=== PATIENT | male | born 1975 | race Caucasian/White ===

== ENCOUNTER 2023-09-02 19:36 | Emergency (ER) | payer OTHER, SELFPAY ==
[2023-09-02 19:41] VITALS: BP 158/100
[2023-09-02 20:00] VITALS: BP 133/88
--- NOTE | 2023-09-02 20:09 | ED.SKININJ ---
HPI-Injury
General
Chief Complaint: Head Injury
Source: patient
Exam Limitations: none
Time Seen by Provider: 09/02/23 19:56
History of Present Illness-Injury
Is this injury a work related problem?: No
Is pt an associate of [facility]/[place]?: No
Initial Injury comments:
This is a 48 year old male that comes in with c/o hitting his head. 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 State that this was an outdoor unit and he hit his head. States that he doesn't want stitches or any
numbing medication. Patient is also refusing a Tetanus. States that he just wants this cleaned good. Denies any fever, chills, chest pain, SOB, abd pain, nausea, vomiting, diarrhea, headache, dizziness.
Past History
Past History
ED Past Medical History: Asthma; Negative HTN, Hypercholesterolemia or NIDDM
ED Past Surgical History: None
Social History
Tobacco: Non-smoker
Alcohol: Former
Drug: Former user
Personal: Single
Living: alone
Employment: Employed
Family History
Family History: Other (Noncontributory)
Review of Systems
Review of Systems
All Other Systems: ROS reviewed and negative except as documented in HPI and ROS
Constitutional: Reports no symptoms; Denies fever or chills
EENT: Reports no symptoms
Respiratory: Reports no symptoms; Denies trouble breathing
Cardiac: Reports no symptoms; Denies chest pain
ABD/GI: Reports no symptoms; Denies abdominal pain, nausea, vomiting or diarrhea
: Reports no symptoms
Musculoskeletal: Reports no symptoms
Skin: Reports other (Hit head and has cut)
Neurological: Reports no symptoms; Denies dizzy or headache
Psychiatric: Reports no symptoms
Skin Exam
Abrasion
Middle Head:
Description of abrasion: superfical/clean
Phy Exam
General Physical Exam
General Presentation: well appearing and no apparent distress
General age: appears stated age
General Skin: warm and dry
General Habitus: normal
General Mental: alert
General Hydration: appears well hydrated
Eye Exam
Eye Exam: EOMI
Musculoskeletal Exam
Musculoskeletal Exam: full ROM
Skin Exam
Skin Exam: normal color, warm/dry, no rash, no petechia and other (Superficial abrasion to the top of the scalp. Cleansed and will apply bacitracin)
Psychiatric Exam
Psychiatric Exam: normal mood/affect
Course
Vital Signs
Initial and Last Documented VS:
Initial Vital Signs
Temp Pulse Resp BP Pulse Ox
97.8 F 78 18 158/100 100
09/02/23 19:41 09/02/23 19:41 09/02/23 19:41 09/02/23 19:41 09/02/23 19:41
Last Documented Vital Signs
Temp Pulse Resp BP Pulse Ox
97.8 F 78 18 158/100 100
09/02/23 19:41 09/02/23 19:41 09/02/23 19:41 09/02/23 19:41 09/02/23 19:41
MDM/Problems Addressed
Differential Diagnosis Includes:
Superficial abrasion scalp
MDM/Problems Addressed:
This is a 48 year old male that comes in with c/o hitting his head when he was doing a side job. States that he dose not want this sutured or any medication. He just wanted it cleaned.
Abrasion cleansed with Peroxide and NSS. Patient refused Tetanus injection. Will apply bacitracin to area. Patient to follow up with PCP. Patient to return with any concerns.
Chronic conditions affecting care:
NA
Acute Exacerbation and/or Progression of Chronic Illness:
NA
*Pulse Oximetry
Patient hypoxic: no
*EKG
Interpreted by ED Provider?: NA
Rate: EKG- N/A
*Hybrid Technologist Interpretation
Rate: Hybrid Technologist- N/A
*Critical Care Note
Total Time (30-74mins, 75-104mins- exclusive of procedures): Not Applicable
ED Attending Note
-
Portions of this chart may have been created with voice recognition software.� Occasional wrong word or��sound alike� substitutions may have occurred due to the inherent limitations of voice recognition software.
Discharge Plan
Departure
Patient Disposition: Home (Routine Discharge)
Date of Disposition: 09/02/23
Time of Disposition: 20:19
Patient with high blood pressure during this ER visit?: Yes
Condition: Good
Covid-19: Not Applicable
Discharge Problem:
Abrasion of head
Instructions: Abrasions ED, BLOOD PRESSURE
Prescriptions:
No Action
tramadol 50 MG tablet
50 mg PO Q12H
ibuprofen 600 MG tablet
600 mg PO Q6HPRN PRN (Reason: headache)
cefuroxime axetil 500 MG tablet
500 mg PO BID Qty: 28 0RF
tramadol 50 MG tablet
50 mg PO Q8HPRN PRN (Reason: pain) Qty: 15 0RF
tramadol 50 MG tablet
50 mg PO BID PRN (Reason: Pain) Qty: 20 0RF
Activity Restrictions/Additional Instructions:
As discussed, this is a superficial abrasion. Please keep this are clean with warm soapy water. You may also apply Bacitracin to the ease. Please wear a hat when you are working. IF YOU HAVE ANY OTHER CONCERNS PLEASE RETURN TO THE EMERGENCY ROOM
Interventions
Interventions:
*Risk Screen - Suicide Last Done: 09/02/23 19:52
*General Assessment Last Done: 09/02/23 19:51
*Neglect/Abuse Screening Last Done: 09/02/23 19:51
ED- Neurological Assessment Last Done: 09/02/23 19:50
ED-Skin Assessment Last Done: 09/02/23 19:50
Discharge Date and Time
Print Language: KENYAN
== END 2023-09-02 20:35 | disposition home or self-care (01) ==
LOC: EMR 19:36
PROVIDERS: EMERGENCY PHYSICIAN Student in an Organized Health Care Education/Training Program; FAMILY PHYSICIAN Family Medicine
DX: S00.91XA Abrasion of unspecified part of head, initial encounter (principal); W22.8XXA Striking against or struck by other objects, initial encounter; J45.909 Unspecified asthma, uncomplicated
CPT/HCPCS: 99282

== ENCOUNTER 2023-09-21 09:35 | Emergency (ER) | payer OTHER, SELFPAY ==
[2023-09-21] VITALS (9 sets, daily range): BP systolic 122–134; BP diastolic 73–89; BMI 26.6
[2023-09-21 10:31] LABS: % Basophils 0.7 % (0-2); % Eosinophils 1.8 % (0-6); % Immature Granulocytes 0.2 % (0-0.5); % Lymphocytes 37.2 % (20.5-51.1); % Monocytes 11.6 % (1.7-9.3); % Neutrophils 48.5 % (42.2-75.2); Absolute Eosinophils 0.1 10^3/uL (0-0.7); Absolute Lymphocytes 1.7 10^3/uL (1.2-3.4); Absolute Monocytes 0.5 10^3/uL (0.1-0.6); Absolute Neutrophils 2.2 10^3/uL (1.4-6.5); Hematocrit 44.2 % (39.0-52.0); Hemoglobin 15.7 g/dL (13.0-18.0); Mean Corp Hgb Conc. 35.5 g/dL (33.0-37.0); Mean Corpuscular Hgb 29.9 pg (27.0-31.0); Mean Corpuscular Volume 84.2 fL (80.0-94.0); Mean Platelet Volume 9.2 fL (7.4-10.4); Nucleated Red Blood Cells % 0 % (-); Platelet Count 155 10^3/uL (130-400); Red Blood Cell Count 5.25 10^6/uL (4.70-6.10); Red Cell Dist. Width 12.3 % (11.5-14.5); White Blood Cell Count 4.5 10^3/uL (4.8-10.8)
[2023-09-21 10:43] LABS: ALT (SGPT) 24 U/L (0-50); AST (SGOT) 32 U/L (17-59); Albumin 4.7 g/dl (3.5-5.0); Alkaline Phosphatase 47 U/L (38-126); Blood Urea Nitrogen 26 mg/dl (9-20); Calcium 9.6 mg/dl (8.4-10.2); Carbon Dioxide 29 mmol/L (22-30); Chloride 103 mmol/L (98-107); Estimated Creatinine Clearance 93 ml/min; Glucose 85 mg/dl (70-99); Potassium 4.3 mmol/L (3.5-5.1); Sodium 138 mmol/L (135-145); Total Bilirubin 1.4 mg/dl (0.2-1.3); Total Protein 6.9 g/dl (6.3-8.2); eGFR > 60.00
[2023-09-21 10:54] LABS: Troponin I < 0.012 ng/ml
[2023-09-21] MEDS: NSS 1000 IV (11:57)
--- NOTE | 2023-09-21 13:40 | ED.GENMED ---
History of Present Illness
General
Chief Complaint: Headache
Source: patient
Exam Limitations: none
Time Seen by Provider: 09/21/23 10:38
Nursing documentation reviewed up to this point in time: agreed with
History of Present Illness
History of Present Illness:
48-year-old male presenting to the emergency department with concerns of ongoing headache over the past month or so as well as a central chest pain last night and palpitations. No ongoing chest pain or palpitations at this time lasted for a few
minutes last night. Has had some intermittent chest pain also has had intermittent left-sided headache. Has felt some intermittent tingling to his hands over the past few months as well. Denies any neck pain fevers nausea vomiting.
Past History
Past History
ED Past Medical History: Asthma; Negative HTN, Hypercholesterolemia or NIDDM
ED Past Surgical History: None
Social History
Tobacco: Non-smoker
Alcohol: Former
Drug: Former user
Personal: Single
Living: alone
Employment: Employed
Family History
Family History: Other (Noncontributory)
Review of Systems
Review of Systems
Allergies reviewed?: Yes
All Other Systems: ROS reviewed and negative except as documented in HPI and ROS
Phy Exam
Physical Exam
Physical Exam:
GENERAL: Alert , in no apparent distress
EYE: pupils equal and reactive
NECK: Supple, no significant adenopathy.
ENT: o/p clr, mmm.
CARDIAC: Regular rate and rhythm .
LUNGS: Clear breath sounds bilaterally, no acute respiratory distress, no wheezes/rales/rhonchi
ABDOMEN: Soft, without focal tenderness, no r/g, no cvat
NEUROLOGICAL: Alert and oriented, no focal neuro deficits out of 5 upper and lower extremity strength normal sensation with popping bilaterally normal finger-nose 8 over send no pronator drift
SKIN: Warm and dry, skin intact.
MUSCULOSKELETAL: No edema, well perfused.
PSYCH: Normal and appropriate interaction.
Course
Orders/Labs/Results
Orders:
Orders
09/21/23 09:43
ECG [Electrocardiogram (*1)] Urgent
Reason for Study: Chest Pain
09/21/23 09:44
EKG- Treatment ONCE
09/21/23 10:12
Complete Blood Count/With Diff Urgent
Comprehensive Metabolic Panel Urgent
Troponin I Urgent
09/21/23 10:58
0.9% Sodium Chloride 1000 ml [Nss] 1,000 ml IV BOLUS
09/21/23 11:06
CT Head W/o Iv Contrast Urgent
Comment:
Reason For Exam: KELLER, int numbness weakness to left hand and foot
Chest [CR Chest - 2 Views ] Urgent
Comment:
Reason For Exam: cp
Abnormal Lab Results
09/21/23
10:12
WBC 4.5 L 10^3/uL
(4.8-10.8)
Monocytes % 11.6 H %
(1.7-9.3)
BUN 26 H mg/dl
(9-20)
Total Bilirubin 1.4 H mg/dl
(0.2-1.3)
09/21/23 10:12
09/21/23 10:12
Vital Signs
Initial and Last Documented VS:
Initial Vital Signs
Temp Pulse Resp BP Pulse Ox
98.7 F 74 18 134/86 97
09/21/23 09:41 09/21/23 09:41 09/21/23 09:41 09/21/23 09:41 09/21/23 09:41
Last Documented Vital Signs
Temp Pulse Resp BP Pulse Ox
98.7 F 54 15 128/81 96
09/21/23 09:41 09/21/23 11:57 09/21/23 11:57 09/21/23 11:57 09/21/23 11:57
MDM/Problems Addressed
MDM/Problems Addressed:
48-year-old male presenting to the emergency department today with concerns of intermittent chest pain over the past few months as well as intermittent chest pain most recently yesterday. On arrival vital signs are normal patient no distress normal
heart and lung exam normal neurologic evaluation labs showing elevated BUN to creatinine ratio he was given fluids otherwise troponin negative EKG normal head CT without emergent findings other than sinusitis advised for close outpatient follow-up
given information for neuro follow-up return precautions given.
*Critical Care Note
Total Time (30-74mins, 75-104mins- exclusive of procedures): Not Applicable
ED Attending Note
-
Portions of this chart may have been created with voice recognition software.� Occasional wrong word or��sound alike� substitutions may have occurred due to the inherent limitations of voice recognition software.
Discharge Plan
Departure
Patient Disposition: Home (Routine Discharge)
Date of Disposition: 09/21/23
Time of Disposition: 13:42
Patient with high blood pressure during this ER visit?: No
Condition: Good
Covid-19: Not Applicable
Discharge Problem:
Acute sinusitis, Headache, Chest pain
Instructions: Headache, Adult (DC)
Prescriptions:
No Action
tramadol 50 MG tablet
50 mg PO Q12H
ibuprofen 600 MG tablet
600 mg PO Q6HPRN PRN (Reason: headache)
cefuroxime axetil 500 MG tablet
500 mg PO BID Qty: 28 0RF
tramadol 50 MG tablet
50 mg PO Q8HPRN PRN (Reason: pain) Qty: 15 0RF
tramadol 50 MG tablet
50 mg PO BID PRN (Reason: Pain) Qty: 20 0RF
Referrals:
Ramirez Ken MD [Active] - Follow up in 5-7 days
Shaun Laird DO [Family Provider] -
Activity Restrictions/Additional Instructions:
You came to the emergency department today with concerns of headache and chest pain.. Reassuring assessment. Please follow closely as an outpatient. Return to the emergency department for any worsening, new or concerning symptoms.
Interventions
Interventions:
*Risk Screen - Suicide Last Done: 09/21/23 09:41
*General Assessment Last Done: 09/21/23 09:41
*Neglect/Abuse Screening Last Done: 09/21/23 09:41
ED- Fall Risk Assessment Last Done: 09/21/23 10:21
*ED COVID-19 Vaccine History Last Done: 09/21/23 10:23
ED- Neurological Assessment Last Done: 09/21/23 10:21
Discharge Date and Time
Print Language: IRISH
== END 2023-09-21 14:00 | disposition home or self-care (01) ==
LOC: EMR 09:35
PROVIDERS: EMERGENCY PHYSICIAN Emergency Medicine; FAMILY PHYSICIAN Family Medicine
DX: J01.90 Acute sinusitis, unspecified (principal); R07.89 Other chest pain; R51.9 Headache, unspecified
CPT/HCPCS: 99285; 96360; 70450; 71046; 80053; 84484; 85025; 93005